=== PATIENT | female | born 1985 | race Hispanic/Latino ===

== ENCOUNTER → 2017-03-01 | Outpatient (REF) ==
[~2017-03-01] MED LIST: ANUS2.5C2 PR; CLEO300C2 PO; COLA100C5 PO; DIBU1OIN TOP; IBUP200C10 PO; MAGICMW SSP; MOTR200T44 PO; PRENTAB20 PO; PRENTAB7 PO; TYLE500T78 PO
== END ==
LOC: M LAB 13:46
PROVIDERS: ATTEND Nurse Practitioner Adult Health
DX: Z02.89 Encounter for other administrative examinations (principal)